=== PATIENT | female | born 1955 | race Caucasian/White ===

== ENCOUNTER 2016-10-27 12:50 | Day surgery (SDC) | payer BC ==
[~2016-10-27] VITALS: Ht 162.6 cm; Wt 80.7 kg
[~2016-10-27 12:50] MED LIST: ASPIR 8181 M1 PO; ATORVASTATIN CA40 MG PO; CLONAZEPAM1 MG PO; CLOPIDOGREL75 MG PO; COLACE100 MG PO; CONTRAVE ER 8-1 EACH PO; LASIX20 MG PO; LEXAPRO20 MG PO; LIPITOR40 MG PO; NITROSTAT0.4 MG SL; OMEPRAZOLE40 M1 PO; PROBIOTIC FORM1 EACH PO; PROTONIX40 MG PO; TRULICITY0.75 MG/0. SC
[2016-10-27] MEDS ORDERED: TYLENOL EXTRA500 MG PO (13:13)
[2016-10-27 13:23] VITALS: BP 117/70
[2016-10-27 13:23] LABS: BASOPHIL COUNT 0.1 K/uL (0-0.1); EOSINOPHIL COUNT 2.4 K/uL (0-0.3); HEMATOCRIT 42.3 % (36.0-46.0); IMMATURE GRANULOCYTE (%) 0.4 % (0.0-0.7); IMMATURE GRANULOCYTE COUNT 0.1 K/uL; INSTRUMENT ABS NEUTROPHIL CT 5.7 K/uL; MCH 30.6 PG (29.0-34.0); MCV 89.8 FL (83-99); MEAN PLAT.VOLUME 10.6 uM^3 (9.5-12.4); MONOCYTE (%) 6.9 % (3-12); MONOCYTE COUNT 0.8 K/uL (0-0.8); NEUTROPHIL (%) 46.9 % (45-76); NEUTROPHIL COUNT 5.7 K/uL (1.8-6.4); PLATELET COUNT 260 K/uL (156-360); RBC DIS.WIDTH-CV 13.5 % (11.8-14.6); RBC DIS.WIDTH-SD 44.7 % (39-53); RED BLOOD COUNT 4.71 M/uL (3.80-5.20); WHITE BLOOD COUNT 12.1 K/uL (4.1-10.2)
[2016-10-27 13:29] LABS: POINT-OF-CARE METER ID UU13113694
[2016-10-27 13:29] LABS: INTER. NORMALIZED RATIO 1.1; PROTHROMBIN TIME 11.6 SEC (10.2-12.9)
[2016-10-27 13:35] LABS: CHLORIDE 110 mEq/L (99-109); POTASSIUM 3.9 mEq/L (3.7-5.4); SODIUM 143 mEq/L (136-147)
[2016-10-27 13:37] LABS: GLUCOSE 90 mg/dL (70-99)
[2016-10-27 13:38] LABS: ANION GAP 10 MEQ/L (2-14)
[2016-10-27 13:39] LABS: TOTAL BILIRUBIN 0.4 mg/dL (0.0-1.0)
[2016-10-27 13:40] LABS: ALKALINE PHOSPHATASE 58 IU/L (3-129)
[2016-10-27 13:41] LABS: GFR ESTIMATE (CALCULATED) > 59 mL/min/
[2016-10-27 13:42] LABS: UREA NITROGEN (BUN) 9 mg/dL (9-23)
[2016-10-27 17:06] LABS: POINT-OF-CARE METER ID UU13113675
[2016-10-27] MEDS ORDERED: HYDROCODON-ACE1 EAC7 PO (17:19)
[2016-10-27] MEDS ORDERED: COLACE100 MG PO (17:19)
[2016-10-27 17:50] VITALS: BP 145/70
[2016-10-27 18:50] VITALS: BP 132/60
[2016-10-29 09:44] LABS: Flow Clinical Information R/O LYMPHOMA (()); Flow Number of Markers 22 (()); Flow Spec Viability 95 % (()); Flow Specimen Type PERIPHERAL BLOOD (())
== END 2016-10-27 19:00 | disposition home or self-care (01) ==
LOC: SDC 12:50
PROVIDERS: Thoracic Surgery (Cardiothoracic Vascular Surgery)
PROC: 07BJ0ZX Excision of Left Inguinal Lymphatic, Open Approach, Diagnostic (ICD-10-PCS; principal; 2016-10-27)
DX: C81.95 Hodgkin lymphoma, unspecified, lymph nodes of inguinal region and lower limb (principal); E11.9 Type 2 diabetes mellitus without complications; Z86.73 Personal history of transient ischemic attack (TIA), and cerebral infarction without residual deficits; Z79.82 Long term (current) use of aspirin; K21.9 Gastro-esophageal reflux disease without esophagitis; Z87.891 Personal history of nicotine dependence
CPT/HCPCS: 80053; 82948; 85025; 85610; 85999; 87070; 87075; 87205; 88184 90; 88185 90; 88189 90; 88305; 93005; J0690; J1885; J2250; J2405; J3010

== ENCOUNTER → 2016-11-11 | Outpatient (CLI) | payer BC ==
[~2016-11-11] MED LIST changes: +HYDROCODON-ACE1 EAC7 PO; +TYLENOL EXTRA500 MG PO
== END | disposition home or self-care (01) ==
LOC: RES 07:38
DX: C81.90 Hodgkin lymphoma, unspecified, unspecified site (principal)
CPT/HCPCS: 94060; 94726; 94729

== ENCOUNTER → 2017-02-03 | Outpatient (CLI) | payer BC | END | disposition home or self-care (01) | LOC: AMB 10:27 | PROC: 0JPT0WZ Removal of Totally Implantable Vascular Access Device from Trunk Subcutaneous Tissue and Fascia, Open Approach (ICD-10-PCS; principal; 2017-02-03) | DX: Z45.2 Encounter for adjustment and management of vascular access device (principal); I87.8 Other specified disorders of veins ==